=== PATIENT | male | born 1990 | race Caucasian/White ===

== ENCOUNTER 2022-03-03 09:38 | Emergency (ER) | payer OTHER ==
[~2022-03-03 09:38] MED LIST: ASPIRIN CHEWABL81 MG PO; NORCO 5-325 TA1 EACH PO
[2022-03-03 12:18] LABS: HEMOGLOBIN 17.6 gm/dl (14.0-17.5); RED BLOOD COUNT 5.56 M/UL (4.20-5.50); WHITE BLOOD COUNT 7.6 K/UL (4.5-11.0)
[2022-03-03 12:27] LABS: BUN/CREATININE RATIO 17 (0-10)
[2022-03-03] MEDS ORDERED: ZOFRAN 4 MG TAB4 MG PO (12:40)
[2022-03-03] MEDS ORDERED: DIAMODE2 MG PO (12:41)
== END 2022-03-03 16:45 | disposition home or self-care (01) ==
LOC: ER1 09:38
PROVIDERS: Emergency Medicine
DX: R11.2 Nausea with vomiting, unspecified (principal); R19.7 Diarrhea, unspecified; R10.816 Epigastric abdominal tenderness; Z20.822 Contact with and (suspected) exposure to COVID-19
CPT/HCPCS: 80053; 83690; 85025; 96374; 96375; 96376; 99284; J1885; J2270; J2405; J2550; Q9967; U0002